=== PATIENT | female | born 1990 | race Caucasian/White ===

== ENCOUNTER 2016-05-17 04:53 | Emergency (ER) | payer SELFPAY ==
[~2016-05-17] VITALS: Ht 167.6 cm; Wt 65.0 kg
[2016-05-17 04:54] VITALS: BP 141/79; PULSE 105; RESP 18; TEMP 98.1; O2SAT 96
--- NOTE | 2016-05-17 05:12 | PD ---
HPI Chief Complaint: ENT Complaint Time Seen by Provider: 05:03 Travel History International Travel<30 days: No Contact w/Intl Traveler<30days: No Traveled to known affect area: No History of Present Illness HPI 25-year-old female with no significant past medical history presents for evaluation of sore throat. Symptoms started 4 days ago. It hurts to swallow. She has been using [place] with some relief in her symptoms. She denies any cough, congestion, rash, recent travel, nausea or vomiting. Her boyfriend has similar symptoms. Symptoms have persisted which prompted evaluation this morning. She has no other complaints at this time. [facility] Past Medical History Medical History: Denies Significant Hx Social History Tobacco Use: Yes Allergies-Medications (Allergen,Severity, Reaction): Coded Allergies: No Known Allergies (Unverified , 05/17/16) Reported Meds & Prescriptions Reported Meds & Active Scripts Active Magic Mouthwash Adult Liq (Multi-Ingredient Mouthwash/Gargle) 120 Ml Susp 5 Ml SWISH-SPIT ACHS Each 5mL contains: Nystatin 200,000units, Diphenhydramine 4.25mg, Viscous Lidocaine 10mg, Box syrup 0.8 mL Review of Systems General / Constitutional: No: Fever, Chills HENT: Positive: Sore Throat, No: Congestion, Earache Respiratory: No: Cough Physical Exam Narrative GENERAL: Well-developed well-nourished female in no acute distress SKIN: Warm and dry. HEAD: Atraumatic. Normocephalic. EYES: Pupils equal and round. No scleral icterus. No injection or drainage. ENT: No nasal bleeding or discharge. Mucous membranes pink and moist. There is mild erythema of the oropharynx. No exudate or vesicle formation. Uvula midline with no mass effect. No stridor or drooling. NECK: Trachea midline. No JVD. No Lymphadenopathy. Neck supple full range of motion. CARDIOVASCULAR: Regular rate and rhythm. No murmur appreciated. RESPIRATORY: No accessory muscle use. Clear to auscultation. Breath sounds equal bilaterally. Data Data Last Documented VS Vital Signs Date Time Temp Pulse Resp B/P Pulse Ox O2 Delivery O2 Flow Rate FiO2 05/17/16 04:54 98.1 105 18 141/79 96 Orders Group A Rapid Strep Screen (05/17/16 05:08) Ibuprofen (Motrin) (05/17/16 05:15) Strep Culture (Group A) (05/17/16 05:15) [facility] Medical Decision Making Medical Screen Exam Complete: Yes Emergency Medical Condition: Yes Medical Record Reviewed: Yes Differential Diagnosis Pharyngitis, tonsillitis, peritonsillar abscess, infectious mononucleosis, herpangina, epiglottitis, retropharyngeal abscess Narrative Course 25 year old female 4 days history of sore throat. Examination reveals mild erythema of the oropharynx. She appears well. A rapid strep screen has been ordered. Ibuprofen will be administered. Rapid strep screen negative. Examination reveals pharyngitis likely viral. Stable for discharge. Diagnosis Primary Impression: Pharyngitis Qualified Code: J02.9 - Pharyngitis, unspecified etiology Departure Forms: Tests/Procedures, Work Release Enter return to work date: May 18, 2016 Additional Instructions: Avoid tobacco products. Take Tylenol or Motrin for discomfort. Medication as needed. Stay well hydrated. Follow-up with primary care as needed. Return for any emergent medical conditions. Med/Other Pt SpecificInfo: Prescription(s) given Scripts Xdyksbbx-Tymfgkilquehaox-Egzcrcdtn Liq (Magic Mouthwash Adult Liq)120 Ml Susp5 Ml SWISH-SPIT ACHS #120 ML Ref 0 Each 5mL contains: Nystatin 200,000units, Diphenhydramine 4.25mg, Viscous Lidocaine 10mg, Box syrup 0.8 mL Prov:Geoffrey Veras MD 05/17/16 Disposition: 01 DISCHARGE HOME Condition: Stable Steve Manzo May 17, 2016 05:12
[2016-05-17] MEDS ORDERED: MAGICADU2 SWISH-SPIT (05:13)
[2016-05-17] MEDS ORDERED: IBUPROFEN 800 MG TAB PO ONE (05:15)
== END 2016-05-17 06:18 | disposition home or self-care (01) ==
LOC: NEPB 04:53
DX: J02.9 Acute pharyngitis, unspecified (principal); Z72.0 Tobacco use
CPT/HCPCS: 87081; 87880; 99283

== ENCOUNTER 2017-10-03 19:00 | Emergency (ER) | payer SELFPAY ==
[~2017-10-03] VITALS: Ht 162.6 cm; Wt 72.0 kg
[~2017-10-03 19:00] MED LIST: MAGICADU2 SWISH-SPIT
[2017-10-03 19:30] VITALS: BP 155/88; PULSE 129; RESP 16; TEMP 99.3; O2SAT 99
--- NOTE | 2017-10-03 21:13 | PD ---
HPI Chief Complaint: Numbness/Tingling Time Seen by Provider: 20:27 Travel History International Travel<30 days: No Contact w/Intl Traveler<30days: No Traveled to known affect area: No History of Present Illness HPI Patient is a 26-year-old female who for the last few days off and on has had left arm numbness starting at the mid elbow going down to her fingers she reports feeling as if her fingers might explode because they hurt so much lasted about 20 minutes she took nothing to alleviate the symptoms she does not see any position or other exacerbating factors. 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 She is a smoker family history father had a heart attack at the age of 32 yr old, pt is a smoker a pack a day and does not doing anything cardiovascular. pt has no pain or numbness in arm in ER currently PFSH Past Medical History Immunizations Current: Yes Tetanus Vaccination: Unknown Influenza Vaccination: No ?: Unknown LMP: 09/18/17 Social History Alcohol Use: No Tobacco Use: Yes Substance Use: No Allergies-Medications (Allergen,Severity, Reaction): Coded Allergies: No Known Allergies (Unverified Adverse Reaction, Unknown, 10/03/17) Reported Meds & Prescriptions Reported Meds & Active Scripts Active Ibuprofen 600 Mg Tab 600 Mg PO Q6H PRN Review of Systems Except as stated in HPI: all other systems reviewed are Neg Musculoskeletal: Positive: Myalgias, Pain (left arm numbness off and on few days ) Physical Exam Narrative GENERAL: non toxic mildly tachycardia SKIN: Warm and dry. HEAD: Atraumatic. Normocephalic. EYES: Pupils equal and round. No scleral icterus. No injection or drainage. ENT: No nasal bleeding or discharge. Mucous membranes pink and moist. NECK: Trachea midline. No JVD. When I press on the muscles of her LEFT paracervical trapezius muscles she feels the recreation of the pain and numbness in her hand --> her numbness is re-created in her fingers with pressure on brachial plexus area CARDIOVASCULAR: Regular rate and rhythm. tachycardic 105-122 sinus RESPIRATORY: No accessory muscle use. Clear to auscultation. Breath sounds equal bilaterally. GASTROINTESTINAL: Abdomen soft, non-tender, nondistended. Hepatic and splenic margins not palpable. MUSCULOSKELETAL: Extremities without clubbing, cyanosis, or edema. No obvious deformities. NEUROLOGICAL: Awake and alert. No obvious cranial nerve deficits. Motor grossly within normal limits. Five out of 5 muscle strength in the arms and legs. Normal speech. PSYCHIATRIC: Appropriate mood and affect; insight and judgment normal. Data Data Last Documented VS Vital Signs Date Time Temp Pulse Resp B/P (MAP) Pulse Ox O2 Delivery O2 Flow Rate FiO2 10/03/17 19:30 99.3 129 16 155/88 (110) 99 Orders Orders Ketorolac Inj (Toradol Inj) (10/03/17 21:15) Electrocardiogram (10/03/17 19:39) Troponin I (10/03/17 21:24) Creatine Kinase (Cpk) (10/03/17 21:24) Complete Blood Count With Diff (10/03/17 21:24) Comprehensive Metabolic Panel (10/03/17 21:24) Ed Discharge Order (10/03/17 23:07) Labs Laboratory Tests Test 10/03/17 21:15 White Blood Count 11.9 TH/MM3 Red Blood Count 4.39 MIL/MM3 Hemoglobin 13.0 GM/DL Hematocrit 38.8 % Mean Corpuscular Volume 88.4 FL Mean Corpuscular Hemoglobin 29.6 PG Mean Corpuscular Hemoglobin Concent 33.5 % Red Cell Distribution Width 12.3 % Platelet Count 207 TH/MM3 Mean Platelet Volume 9.9 FL Neutrophils (%) (Auto) 70.3 % Lymphocytes (%) (Auto) 21.7 % Monocytes (%) (Auto) 6.2 % Eosinophils (%) (Auto) 1.3 % Basophils (%) (Auto) 0.5 % Neutrophils # (Auto) 8.4 TH/MM3 Lymphocytes # (Auto) 2.6 TH/MM3 Monocytes # (Auto) 0.7 TH/MM3 Eosinophils # (Auto) 0.2 TH/MM3 Basophils # (Auto) 0.1 TH/MM3 CBC Comment DIFF FINAL Differential Comment Blood Urea Nitrogen 13 MG/DL Creatinine 0.63 MG/DL Random Glucose 85 MG/DL Total Protein 7.2 GM/DL Albumin 3.9 GM/DL Calcium Level 8.8 MG/DL Alkaline Phosphatase 76 U/L Aspartate Amino Transf (AST/SGOT) 16 U/L Alanine Aminotransferase (ALT/SGPT) 38 U/L Total Bilirubin 0.2 MG/DL Sodium Level 138 MEQ/L Potassium Level 3.7 MEQ/L Chloride Level 107 MEQ/L Carbon Dioxide Level 21.9 MEQ/L Anion Gap 9 MEQ/L Estimat Glomerular Filtration Rate 113 ML/MIN Total Creatine Kinase 59 U/L Troponin I LESS THAN 0.02 NG/ML MDM Medical Decision Making Medical Screen Exam Complete: Yes Emergency Medical Condition: Yes Medical Record Reviewed: Yes Differential Diagnosis Differential diagnosis includes cardiac anemia versus gastric reflux versus muscle spasm lizeth upon her peripheral nerves of her brachial plexus causing arm numbness versus trauma versus neuropraxia patient Narrative Course Toradol 60 IM EKG is normal sinus tach he after the injection of Toradol she relaxes her heart rate is 75 bpm troponin is negative she feels much better and the pain in her arm is gone I have been able to reproduce it when I pushed on her trapezius muscles and created the same feeling in her hand I explained that is mostly muscle spasm causing neurapraxia Diagnosis Primary Impression: Neuropraxia of left upper extremity Qualified Codes: S44.92XA - Injury of unspecified nerve at shoulder and upper arm level, left arm, initial encounter Patient Instructions: Cervical Radiculopathy (ED), General Instructions, Muscle Spasm (ED) Scripts Ibuprofen (Ibuprofen) 600 Mg Tab 600 MG PO Q6H Y for Pain/Inflammation, #20 TAB 0 Refills Prov: Drew Maxwell MD 10/03/17 Disposition: 01 DISCHARGE HOME Condition: Good Drew Maxwell MD Oct 03, 2017 21:13
[2017-10-03] MEDS ORDERED: KETOROLAC TROMETHAMINE 60 MG/2 ML (IM) VIAL IM ONE (21:15)
--- NOTE | 2017-10-03 21:33 | EKG ---
Date Performed: 10/03/2017 Time Performed: 19:39:59 PTAGE: 26 years EKG: SINUS TACHYCARDIA POSSIBLE RIGHT VENTRICULAR CONDUCTION DELAY NONSPECIFIC ST & T-WAVE ABNOR MALITY ABNORMAL RHYTHM ECG NO PREVIOUS TRACING DOCTOR: Bryan Berger Interpretating Date/Time 10/03/2017 21:32:11
[2017-10-03 21:59] LABS: AUTOMATED NEUTROPHIL # 8.4 TH/MM3 (1.8-7.7); BASOPHIL # 0.1 TH/MM3 (0-0.2); BASOPHIL % 0.5 % (0.0-2.0); EOSINOPHIL # 0.2 TH/MM3 (0-0.4); EOSINOPHIL % 1.3 % (0.0-4.0); HEMATOCRIT 38.8 % (35.0-46.0); LYMPH % 21.7 % (9.0-44.0); LYMPHOCYTE # 2.6 TH/MM3 (1.0-4.8); MEAN CELL VOLUME 88.4 FL (80.0-100.0); MEAN CORPUSCULAR HEMOGLOBIN 29.6 PG (27.0-34.0); MEAN CORPUSCULAR HGB CONC 33.5 % (32.0-36.0); MEAN PLATELET VOLUME 9.9 FL (7.0-11.0); MONO % 6.2 % (0.0-8.0); MONOCYTE # 0.7 TH/MM3 (0-0.9); NEUT % 70.3 % (16.0-70.0); PLATELET COUNT 207 TH/MM3 (150-450); RED BLOOD COUNT 4.39 MIL/MM3 (4.00-5.30); RED CELL DISTRIBUTION WIDTH 12.3 % (11.6-17.2); WHITE BLOOD COUNT 11.9 TH/MM3 (4.0-11.0)
[2017-10-03 22:18] LABS: ALBUMIN 3.9 GM/DL (3.4-5.0); AST (GOT) 16 U/L (15-37); BICARBONATE 21.9 MEQ/L (21.0-32.0); BLOOD UREA NITROGEN 13 MG/DL (7-18); CALCIUM 8.8 MG/DL (8.5-10.1); CHLORIDE 107 MEQ/L (98-107); CREATININE 0.63 MG/DL (0.50-1.00); GLOMERULAR FILTRATION RATE 113 ML/MIN (>89); GLUCOSE,RANDOM 85 MG/DL (74-106); SODIUM (NA) 138 MEQ/L (136-145)
[2017-10-03 22:19] LABS: ALT (GPT) 38 U/L (10-53)
[2017-10-03 22:23] LABS: ALKALINE PHOSPHATASE 76 U/L (45-117); TOTAL BILIRUBIN ADULT 0.2 MG/DL (0.2-1.0); TOTAL PROTEIN 7.2 GM/DL (6.4-8.2); TROPONIN I LESS THAN 0.02 NG/ML (0.02-0.05)
[2017-10-03] MEDS ORDERED: IBUP-232 PO (23:06)
== END 2017-10-03 23:30 | disposition home or self-care (01) ==
LOC: NEPE 19:00
DX: S44.92XA Injury of unspecified nerve at shoulder and upper arm level, left arm, initial encounter (principal); R00.0 Tachycardia, unspecified; X58.XXXA Exposure to other specified factors, initial encounter
CPT/HCPCS: 80053; 82550; 84484; 85025; 93005; 96372; 99284; J1885